=== PATIENT | female | born 2000 | race Caucasian/White ===

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

== ENCOUNTER 2020-03-18 16:34 | Emergency (ER) | payer OTHER ==
[2020-03-18] MEDS ORDERED: IBUPROFEN 400 MG TABLET (FP) PO ONE ×2 (17:05→17:16)
[2020-03-18] MEDS ORDERED: ACETAMINOPHEN 325 MG TABLET (FP) PO ONE (17:05)
[2020-03-18] MEDS ORDERED: CYCLOBENZAPRINE HCL 10 MG TABLET (FP) PO ONE (17:11)
[2020-03-18 17:15] VITALS: TEMP 98; BMI 22.3
[2020-03-18] MEDS ORDERED: ACETAMINOPHEN 325 MG TABLET (FP) ONE (17:16)
[2020-03-18] MEDS ORDERED: CYCLOBENZAPRINE HCL 10 MG TABLET (FP) ONE (17:17)
[2020-03-18] MEDS ORDERED: KETAMINE HCL 200 MG/20 ML VIAL ONE (18:42)
[2020-03-18] MEDS ORDERED: PROPOFOL 200 MG/20 ML VIAL IVPUSH ONE ×3 (18:48→20:39)
[2020-03-18] MEDS ORDERED: PROPOFOL 20 ML ONE (19:04)
[2020-03-18] MEDS ORDERED: ONDANSETRON 4 MG/2 ML VIAL ONE (19:08)
[2020-03-18] MEDS ORDERED: morphine SULFATE 4 MG/ML VIAL ONE (19:10)
[2020-03-18] MEDS ORDERED: KETAMINE HCL 200 MG/20 ML VIAL IVPUSH ONE ×2 (19:39→20:39)
[2020-03-18] MEDS ORDERED: morphine CARPU-JECT 4 MG/1 ML DISP.SYRIN IVPUSH ONE (19:46)
[2020-03-18] MEDS ORDERED: ONDANSETRON 4 MG/2 ML VIAL IVPB ONE (19:46)
[2020-03-18 20:34] VITALS: BP 129/86; PULSE 94
== END 2020-03-18 21:52 | disposition short-term general hospital (02) ==
LOC: FER 16:34
PROC: 3E033GC Introduction of Other Therapeutic Substance into Peripheral Vein, Percutaneous Approach (ICD-10-PCS; principal; 2020-03-18)
PROC: 3E033NZ Introduction of Analgesics, Hypnotics, Sedatives into Peripheral Vein, Percutaneous Approach (ICD-10-PCS; 2020-03-18)
PROC: 3E033GC Introduction of Other Therapeutic Substance into Peripheral Vein, Percutaneous Approach (ICD-10-PCS; 2020-03-18)
DX: S73.005A Unspecified dislocation of left hip, initial encounter (principal); V00.228A Other sled accident, initial encounter
CPT/HCPCS: 72170-TC-FY; 73502-TC-LT-FY; 73523-TC-FY; 73552-TC-LT-FY; 99285-25